=== PATIENT | female | born 1975 | race Caucasian/White ===

== ENCOUNTER 2018-04-01 17:18 | Emergency (ER) | payer OTHER ==
[~2018-04-01] VITALS: Ht 162.6 cm; Wt 108.0 kg
[2018-04-01] MEDS ORDERED: LEVOXYL25 MCG PO (17:33)
[2018-04-01 18:17] LABS: ABSOLUTE BASOPHILS 0.1 thou/uL (0.0-0.2); ABSOLUTE EOSINOPHILS 0.3 thou/uL (0.0-0.7); ABSOLUTE LYMPHOCYTES 1.7 thou/uL (0.8-5.3); ABSOLUTE MONOCYTES 0.6 thou/uL (0.0-1.2); ABSOLUTE NEUTROPHILS 7.6 thou/uL (1.6-8.1); EOSINOPHILS 2.4 %; HEMATOCRIT 36.3 % (37.0-47.0); HEMOGLOBIN 11.9 gm/dL (12.0-15.0); LYMPHOCYTES 16.8 %; MCH 28.4 pg (26.0-34.0); MCHC 32.6 g/dL (28.0-37.0); MCV 87.1 fL (80.0-100.0); MONOCYTES 6.1 %; MPV 7.1 fl. (7.2-11.1); NUCLEATED RBCS 0 /100WBC; PLATELET COUNT* 410 thou/uL (150-400); POLYS 73.7 %; RBC 4.17 mil/uL (4.20-5.00); RDW-CV 14.1 % (10.5-14.5); WBC 10.3 thou/uL (4.0-11.0)
[2018-04-01 18:24] LABS: ANION GAP 5 mmol/L (7-16); BUN 11 mg/dL (7-18); CALCIUM 8.4 mg/dL (8.5-10.1); CHLORIDE 106 mmol/L (98-107); CO2 30 mmol/L (21-32); CREATININE 0.8 mg/dL (0.6-1.3); GLUCOSE 103 mg/dL (70-99); POTASSIUM 3.3 mmol/L (3.5-5.1); SODIUM 141 mmol/L (136-145)
[2018-04-01 18:31] LABS: ALBUMIN 3.2 g/dL (3.4-5.0); ALKALINE PHOSPHATASE 117 U/L (46-116); SGOT 18 U/L (15-37); SGPT 30 U/L (30-65); TOTAL BILIRUBIN 0.1 mg/dL (<0.1-1.0); TOTAL PROTEIN 7.1 g/dL (6.4-8.2); TROPONIN-I LEVEL <0.06 ng/mL (<0.06)
[2018-04-01] MEDS ORDERED: NORCO 5-325 TA1 EACH PO (18:50)
[2018-04-01] MEDS ORDERED: NAPROSYN500 MG PO (18:50)
[2018-04-01 19:21] LABS: ESR (SEDRATE) 50 mm/hr (0-20)
[2018-04-01 19:40] VITALS: BP 118/56
--- NOTE | 2018-04-02 12:13 | EKG ---
[place] [address] ELECTROCARDIOGRAM REPORT Name: ANNE-MARIE SILVA [id number] Admission: 04/01/18 Attend Phys: Discharge: 04/01/18 Date of : 75 Report #: [id number] THIS REPORT FOR: //name// [facility] ED Test Date: 2018-04-01 Test Time: 17:40:53 Pat Name: ANNE-MARIE SILVA Department: Room: Gender: F [employer] Operator: TS : 1975 Requested By: Mckenzie Garcia Order Number: [id number] MD: Elie Marrero Measurements Intervals [place] Rate: 107 P: 21 CA: 176 QRS: 76 QRSD: 105 T: -27 QT: 322 QTc: 430 Interpretive Statements Sinus tachycardia Borderline repolarization abnormality No previous ECG available for comparison Electronically Signed On 04-02-2018 12:13:42 ASSISTANT SITE MANAGER by Elie Marrero [email or web address] <ELECTRONICALLY SIGNED> By: Elie Marrero MD, [facility] 04/02/18 1213 1740 1740 Elie Marrero MD, FACC /EPI
== END 2018-04-01 19:35 | disposition home or self-care (01) ==
LOC: M.ERS 17:18
PROVIDERS: Physician Assistant
DX: M25.512 Pain in left shoulder (principal); Z88.1 Allergy status to other antibiotic agents; Z88.0 Allergy status to penicillin